=== PATIENT | female | born 1980 | race Caucasian/White ===

== ENCOUNTER 2017-07-25 21:17 | Emergency (ER) | payer SELFPAY ==
[2017-07-26 01:15] VITALS: BP 150/99
== END 2017-07-26 01:15 | disposition home or self-care (01) ==
LOC: ED 21:17
DX: S39.012A Strain of muscle, fascia and tendon of lower back, initial encounter (principal); S09.90XA Unspecified injury of head, initial encounter; M54.2 Cervicalgia; W17.89XA Other fall from one level to another, initial encounter; Y93.89 Activity, other specified; Y92.89 Other specified places as the place of occurrence of the external cause; Y99.8 Other external cause status